=== PATIENT | female | born 1970 | race Caucasian/White ===

== ENCOUNTER 2021-08-07 17:41 | Inpatient (IN) | payer OTHER ==
[~2021-08-07] VITALS: Ht 172.7 cm; Wt 77.1 kg
[2021-08-07] MEDS ORDERED: [UNRECOGNIZED DRUG - OTHER] (18:09)
== END 2021-08-11 13:07 | disposition home or self-care (01) | DRG 444 ==
LOC: ER 17:41 → MEDI 08-08 16:50
PROVIDERS: ADMIT Internal Medicine; ATTEND Internal Medicine
PROC: BW40ZZZ Ultrasonography of Abdomen (ICD-10-PCS; principal; 2021-08-08)
PROC: BF37ZZZ Magnetic Resonance Imaging (MRI) of Pancreas (ICD-10-PCS; 2021-08-08)
DX: K80.20 Calculus of gallbladder without cholecystitis without obstruction (principal); K85.80 Other acute pancreatitis without necrosis or infection; E86.0 Dehydration; I10 Essential (primary) hypertension; F41.8 Other specified anxiety disorders; E87.8 Other disorders of electrolyte and fluid balance, not elsewhere classified